=== PATIENT | female | born 1985 | race Caucasian/White ===

== ENCOUNTER 2020-01-23 03:07 | Emergency (ER) | payer BC ==
[~2020-01-23] VITALS: Ht 170.2 cm; Wt 59.1 kg
[2020-01-23] MEDS ORDERED: LORA-269 PO (03:45)
[2020-01-23 03:58] VITALS: BP 117/85
== END 2020-01-23 04:00 | disposition home or self-care (01) ==
LOC: ER 03:08
DX: F41.9 Anxiety disorder, unspecified (principal); G47.00 Insomnia, unspecified
CPT/HCPCS: 99283